=== PATIENT | female | born 1975 | race Two or more races ===

== ENCOUNTER 2018-03-14 11:45 | Emergency (ER) | payer OTHER ==
[2018-03-14 11:56] VITALS: BMI 27.4
[2018-03-14 12:03] VITALS: RESP 18; TEMP 97.8
[2018-03-14 12:46] LABS: BASO # 0.02 K/mm3 (0.0-2.0); BASO % 0.3 % (0.0-3.0); EOS # 0.1 (0.0-0.7); EOS % 2.2 % (1.5-5.0); GRAN # 3.54 (1.4-6.5); GRAN % 54.5 % (50.0-68.0); LYMPH # 2.5 (1.2-3.4); LYMPH % 38.1 % (22.0-35.0); MEAN CELL VOLUME 84.8 fl (80.0-105.0); MEAN CORPUSCULAR HEMOGLOBIN 27.8 pg (25.0-35.0); MEAN CORPUSCULAR HGB CONC 32.7 g/dl (31.0-37.0); MEAN PLATELET VOLUME 10.7 fl (7.0-11.0); MONO # 0.3 (0.1-0.6); MONO % 4.9 % (1.0-6.0); RBC 4.68 10^6/uL (3.5-6.1); RED CELL DISTRIBUTION WIDTH 14.1 % (11.5-14.5); WHITE BLOOD COUNT 6.5 10^3/uL (4.5-11.0)
[2018-03-14 13:04] LABS: ALB/GLOB RATIO 1.3 (1.1-1.8); ALBUMIN 4.1 g/dL (3.0-4.8); ALT/SGPT 29 U/L (7-56); AST/SGOT 21 U/L (14-36); BLOOD UREA NITROGEN 13 mg/dL (7-21); CALCIUM 9.1 mg/dL (8.4-10.5); GFR NON-AFRICAN AMERICAN > 60
--- NOTE | 2018-03-14 13:12 | CT ---
Date of service: 03/14/2018 PROCEDURE: CT HEAD WITHOUT CONTRAST. HISTORY: facial pain COMPARISON: None available. TECHNIQUE: Axial computed tomography images were obtained through the head/brain without intravenous contrast. Radiation dose: Total exam DLP = 1483.26 mGy-cm. This CT exam was performed using one or more of the following dose reduction techniques: Automated exposure control, adjustment of the mA and/or kV according to patient size, and/or use of iterative reconstruction technique. FINDINGS: Examination limited due to patient motion artifact, despite repeat scan attempt. Evaluation of the posterior fossa is somewhat limited. HEMORRHAGE: No intracranial hemorrhage. BRAIN: No mass effect or edema. No atrophy or chronic microvascular ischemic changes. VENTRICLES: Unremarkable. No hydrocephalus. CALVARIUM: Unremarkable. PARANASAL SINUSES: Unremarkable as visualized. No significant inflammatory changes. MASTOID AIR CELLS: Unremarkable as visualized. No inflammatory changes. OTHER FINDINGS: None. IMPRESSION: Normal CT of the Head. No intracranial mass, hemorrhage or evidence of acute infarct.
[2018-03-14 13:14] LABS: TROPONIN I < 0.01 ng/mL
--- NOTE | 2018-03-14 13:36 | RAD ---
Date of service: 03/14/2018 HISTORY: cough COMPARISON: No prior. FINDINGS: LUNGS: No active pulmonary disease. PLEURA: No significant pleural effusion identified, no pneumothorax apparent. CARDIOVASCULAR: No aortic atherosclerotic calcification present. Normal cardiac size. No pulmonary vascular congestion. OSSEOUS STRUCTURES: No significant abnormalities. VISUALIZED UPPER ABDOMEN: Normal. OTHER FINDINGS: None. IMPRESSION: No active disease.
[2018-03-14 13:53] VITALS: O2SAT 98
--- NOTE | 2018-03-14 13:59 | ED PDOC ---
Arrival/HPI - General Chief Complaint: Cough, Cold, Congestion Time Seen by Provider: 03/14/18 11:47 Historian: Patient - History of Present Illness Narrative History of Present Illness (Text): 03/14/18 13:54 43yo female with no pmhx present with complaint of nonproductive cough, nasal congestion/rhinorrhea x 3days. States she have "weird feeling on her left sided temporal/cheek area and left arm. States she was seen at Urgent care this morning and was referred to ED for further evaluation. She did not get the flu vaccine. States the person at the stated that her face looked like it was drooping on the left, but she herself did not notice any drooping. Denies any focal weakness, visual changes, headache, nausea, vomiting, neck pain, back pain, abdominal pain, any other complaint. Past Medical History - Provider Review Nursing Documentation Reviewed: Yes - Cardiac Hx Cardiac Disorders: No - Pulmonary Hx Respiratory Disorders: No - Neurological Hx Migraine: Yes - HEENT Hx HEENT Disorder: No - Renal Hx Renal Disorder: No - Endocrine/Metabolic Hx Endocrine Disorders: No - Hematological/Oncological Hx Blood Disorders: No - Integumentary Hx Dermatological Disorder: No - Musculoskeletal/Rheumatological Other/Comment: Chronic Rt shoulder pain. - Gastrointestinal Hx Gastrointestinal Disorders: No - Genitourinary/Gynecological Hx Genitourinary Disorders: No - Psychiatric Hx Psychophysiologic Disorder: No Hx Substance Use: No Family/Social History - Physician Review Nursing Documentation Reviewed: Yes Family/Social History: Unknown Family HX Smoking Status: Never Smoked Hx Alcohol Use: Yes Frequency of alcohol use: Socially Hx Substance Use: No Allergies/Home Meds Allergies/Adverse Reactions: Allergies No Known Allergies Allergy (Verified 03/14/18 11:56) Review of Systems - Physician Review All systems were reviewed & negative as marked: Yes - Review of Systems Constitutional: Normal Eyes: Normal ENT: Rhinorrhea Respiratory: Cough Cardiovascular: Normal Gastrointestinal: Normal Genitourinary Female: Normal Musculoskeletal: Normal Skin: Normal Neurological: Normal Endocrine: Normal Hemo/Lymphatic: Normal Psychiatric: Normal Physical Exam Vital Signs Reviewed: Yes Vital Signs Temp Pulse Resp BP Pulse Ox 03/14/18 13:52 78 18 106/54 L 98 03/14/18 11:56 97.8 F 89 18 120/75 100 Temperature: Afebrile Blood Pressure: Normal Pulse: Regular Respiratory Rate: Normal Appearance: Positive for: Well-Appearing, Non-Toxic, Comfortable Pain Distress: None Mental Status: Positive for: Alert and Oriented X 3 - Systems Exam Head: Present: Atraumatic, Normocephalic Pupils: Present: PERRL Extroacular Muscles: Present: EOMI Conjunctiva: Present: Normal Mouth: Present: Moist Mucous Membranes Nose (Internal): Present: Boggy (B/L) Neck: Present: Normal Range of Motion Respiratory/Chest: Present: Clear to Auscultation, Good Air Exchange. No: Respiratory Distress, Accessory Muscle Use, Wheezes, Decreased Breath Sounds, Rales, Retracting, Rhonchi, Tachypneic Cardiovascular: Present: Regular Rate and Rhythm, Normal S1, S2. No: Murmurs Abdomen: No: Tenderness, Distention, Peritoneal Signs Back: Present: Normal Inspection Upper Extremity: Present: Normal Inspection. No: Cyanosis, Edema Lower Extremity: Present: Normal Inspection. No: Edema Neurological: Present: GCS=15, CN II-XII Intact, Speech Normal, Motor Func Grossly Intact, Normal Sensory Function, Normal Cerebellar Funct, Norm Deep Tendon Reflexes, Gait Normal, Memory Normal, Normal 2Pt Descrimination, Other (No focal neurological deficit) Skin: Present: Warm, Dry, Normal Color. No: Rashes Psychiatric: Present: Alert, Oriented x 3, Normal Insight, Normal Concentration Medical Decision Making ED Course and Treatment: 03/14/18 19:05 PT present to ED for stated history. Labs Head CT Rapid flu EKG Chest xray PT remain hemodynamically stable and neurologically stable in ED All labs was unremarkable. she remained Neurologically intact in ED Rapid flu - Negative Chest xray IMPRESSION: No active disease. Head CT IMPRESSION: Normal CT of the Head. No intracranial mass, hemorrhage or evidence of acute infarct. PT's symptoms likely secondary to viral URI. All result was DW the pt. She was treated symptomatically. Referred to her PMD. - Lab Interpretations Lab Results: Troponin I < 0.01 ng/mL 03/14/18 12:42 Total Bilirubin 0.3 mg/dL (0.2-1.3) 03/14/18 12:42 AST 21 U/L (14-36) 03/14/18 12:42 ALT 29 U/L (7-56) 03/14/18 12:42 Alkaline Phosphatase 63 U/L (38-126) 03/14/18 12:42 Total Protein 7.3 g/dL (5.8-8.3) 03/14/18 12:42 Albumin 4.1 g/dL (3.0-4.8) 03/14/18 12:42 Globulin 3.2 gm/dL 03/14/18 12:42 Albumin/Globulin Ratio 1.3 (1.1-1.8) 03/14/18 12:42 - RAD Interpretation Radiology Orders: 03/14/18 12:17 HEAD W/O CONTRAST [CT] Stat 03/14/18 13:16 CHEST PORTABLE [RAD] Stat - Medication Orders Current Medication Orders: Benzonatate (Tessalon Perles) 100 mg PO TID STA Stop: 03/14/18 13:54 Loratadine (Claritin) 10 mg PO ONCE ONE Stop: 03/14/18 13:55 Disposition/Present on Arrival - Present on Arrival Any Indicators Present on Arrival: No History of DVT/PE: No History of Uncontrolled Diabetes: No Urinary Catheter: No History of Decub. Ulcer: No History Surgical Site Infection Following: None - Disposition Have Diagnosis and Disposition been Completed?: Yes Diagnosis: URI (upper respiratory infection) Disposition: HOME/ ROUTINE Disposition Time: 14:00 Patient Plan: Discharge Condition: STABLE Discharge Instructions (ExitCare): Viral Upper Respiratory Infection, Adult (DC ) Additional Instructions: Follow up with your Doctor Drink plenty of fluids and rest Return to ED for any worsening or new symptoms Prescriptions: RX: Albuterol HFA [Ventolin HFA 90 mcg/actuation (8 g)] 2 puff IH [id number] #1 puff Loratadine/Pseudoephedrine [Claritin-D 24 Hour Tablet] 1 each PO DAILY #20 tab.er.24h Promethazine HCl/Codeine [Prometh-Codein 6.25-10 mg/5 ml] 5 ml PO Q6 #100 syrup Referrals: Malachi Perez MD [Family Provider] - Follow up with primary Forms: [employer] ([place]an)
[2018-03-14 14:47] LABS: INR 0.91; PARTIAL THROMBOPLASTIN TIME 33.6 Seconds (25.1-36.5); PROTHROMBIN TIME 10.4 SECONDS (9.4-12.5)
[2018-03-14 15:03] VITALS: BP 100/64; PULSE 88
== END 2018-03-14 15:09 | disposition home or self-care (01) ==
LOC: ED 11:45
DX: J06.9 Acute upper respiratory infection, unspecified (principal)